=== PATIENT | female | born 1990 | race Caucasian/White ===

== ENCOUNTER 2018-12-28 17:52 | Emergency (ER) | payer SELFPAY ==
[2018-12-28 18:46] LABS: Absolute Lymphocytes (CBC) 2.2 K/uL (0.7-4.9); Basophils % 0.5 % (0-1.3); Hematocrit 41.9 % (36.0-45.0); Lymphocytes % 23.8 % (15.3-44.8); RBC Red Blood Cell Count 4.44 M/uL (3.86-4.86)
[2018-12-28 18:49] LABS: Protime INR 2.32
[2018-12-28 19:03] LABS: BUN Blood Urea Nitrogen 9 mg/dL (7-18); Bicarbonate 24 mmol/L (21-32); Glucose Level 93 mg/dL (74-106); Magnesium 2.3 mg/dL (1.8-2.4); NT PRO-BNP 171 pg/mL (<125); Potassium 3.6 mmol/L (3.5-5.1); Sodium Level 140 mmol/L (136-145); Troponin (Emerg Dept Use Only) < 0.02 ng/mL (0.0-0.045)
--- NOTE | 2018-12-28 19:43 | RAD REPORT ---
EXAM DESCRIPTION: CT - Chest For Pe Angio - 12/28/2018 7:31 pm CLINICAL HISTORY: Right-sided chest pain COMPARISON: None. TECHNIQUE: Dynamically enhanced 3 mm thick images of the chest were obtained during administration o f approximately 150mL Isovue 370 IV contrast. Coronal and oblique MIP reconstruction images were gene rated and reviewed. Exam utilizes a protocol to evaluate the pulmonary arterial tree. All CT scans are performed using dose optimization technique as appropriate and may include automated exposure control or mA/KV adjustment according to patient size. FINDINGS: No pulmonary emboli are identified. The aorta as imaged shows no acute or suspicious finding. No pericardial thickening or effusion. No infiltrate or mass in the lung parenchyma. No pleural effusion or pleural thickening. No mediastinal or hilar suspicious masses. No chest wall masses or abnormal axillary lymphadenopathy. IMPRESSION: No pulmonary emboli identified. No other significant or suspicious findings.
--- NOTE | 2018-12-28 20:25 | EDPHYS ---
Physician Documentation [facility] Name: Verenice Greene Age: 28 yrs Sex: Female : 1990 Arrival Date: 12/28/2018 Time: 17:54 Bed 20 Private MD: ED Physician Eleuterio Morales HPI: 12/29 03:12 This 28 yrs old Female presents to ER via Ambulatory with complaints of Chest kb Pain. 03:13 The patient or guardian reports chest pain that is located primarily in the anterior kb chest wall, right. The pain does not radiate. Associated signs and symptoms: Pertinent positives: cough, shortness of breath. The chest pain is described as sharp. Duration: The patient or guardian reports a single episode. Modifying factors: The symptoms are alleviated by nothing. the symptoms are aggravated by breathing. Severity of pain: At its worst the pain was moderate in the emergency department the pain is unchanged. The patient has experienced a previous episode. The patient has not recently seen a physician. Pt reports chest pain with breathing, shortness of breath and cough that started this morning. States it feels the same as when she had a PE before. 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 - Social history:: Smoking status: Patient uses tobacco products, smokes one-half pack cigarettes per day. - Ebola Screening: : No symptoms or risks identified at this time. ROS: 12/29 03:13 Constitutional: Negative for fever, chills, and weight loss, ENT: Negative for injury, kb pain, and discharge, Neck: Negative for injury, pain, and swelling, Abdomen/GI: Negative for abdominal pain, nausea, vomiting, diarrhea, and constipation, Back: Negative for injury and pain, MS/Extremity: Negative for injury and deformity, Skin: Negative for injury, rash, and discoloration, Neuro: Negative for headache, weakness, numbness, tingling, and seizure. Cardiovascular: Positive for chest pain, of the right scapular area. Respiratory: Positive for cough, shortness of breath. Exam: 03:13 Constitutional: This is a well developed, well nourished patient who is awake, alert, kb and in no acute distress. Head/Face: Normocephalic, atraumatic. ENT: Nares patent. No nasal discharge, no septal abnormalities noted. Tympanic membranes are normal and external auditory canals are clear. Oropharynx with no redness, swelling, or masses, exudates, or evidence of obstruction, uvula midline. Mucous membranes moist. Neck: Trachea midline, no thyromegaly or masses palpated, and no cervical lymphadenopathy. Supple, full range of motion without nuchal rigidity, or vertebral point tenderness. No Meningismus. Chest/axilla: Normal chest wall appearance and motion. Nontender with no deformity. No lesions are appreciated. Cardiovascular: Regular rate and rhythm with a normal S1 and S2. No gallops, murmurs, or rubs. Normal PMI, no JVD. No pulse deficits. Respiratory: Lungs have equal breath sounds bilaterally, clear to auscultation and percussion. No rales, rhonchi or wheezes noted. No increased work of breathing, no retractions or nasal flaring. Abdomen/GI: Soft, non-tender, with normal bowel sounds. No distension or tympany. No guarding or rebound. No evidence of tenderness throughout. Skin: Warm, dry with normal turgor. Normal color with no rashes, no lesions, and no evidence of cellulitis. MS/ Extremity: Pulses equal, no cyanosis. Neurovascular intact. Full, normal range of motion. Neuro: Awake and alert, GCS 15, oriented to person, place, time, and situation. Cranial nerves II-XII grossly intact. Motor strength 5/5 in all extremities. Sensory grossly intact. Cerebellar exam normal. Normal gait. Vital Signs: 12/28 18:07 BP 176 / 82; Pulse 97; Resp 20; Temp 97.8; Pulse Ox 98% on R/A; Weight 143.79 kg; hb Height 6 ft. (182.88 cm); Pain 6/10; 19:04 BP 128 / 76; Pulse 84; Resp 16; Pulse Ox 99% on R/A; em 19:15 BP 128 / 76; Pulse 86; Resp 17; Temp 98.6; Pulse Ox 100% ; Pain 9/10; rr5 20:00 BP 133 / 70; Pulse 80; Resp 17; Pulse Ox 99% on R/A; rr5 20:40 BP 136 / 84; Pulse 83; Resp 18; Pulse Ox 100% on R/A; rr5 18:07 Body Mass Index 42.99 (143.79 kg, 182.88 cm) hb MDM: 18:14 Patient medically screened. kb 20:22 Data reviewed: vital signs, nurses notes. Data interpreted: Pulse oximetry: on room air kb is 100 %. Interpretation: normal. 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 12/28 18:30 Order name: Basic Metabolic Panel; Complete Time: 19:08 kb 12/28 18:30 Order name: CBC with Diff; Complete Time: 18:57 kb 12/28 18:30 Order name: Magnesium; Complete Time: 19:08 kb 12/28 18:30 Order name: NT PRO-BNP; Complete Time: 19:08 kb 12/28 18:30 Order name: PT-INR; Complete Time: 19:08 kb 02 18:30 Order name: Troponin (emerg Dept Use Only); Complete Time: 19:08 kb 12/28 18:30 Order name: EKG; Complete Time: 18:31 kb 12/28 18:30 Order name: Cardiac monitoring; Complete Time: 18:52 kb 12/28 18:30 Order name: EKG - Nurse/Tech; Complete Time: 18:52 kb 12/28 18:30 Order name: IV Saline Lock; Complete Time: 18:52 kb 12/28 18:30 Order name: Labs collected and sent; Complete Time: 18:52 kb 12/28 18:30 Order name: O2 Per Protocol; Complete Time: 18:52 kb 12/28 18:30 Order name: O2 Sat Monitoring; Complete Time: 18:52 kb 12/28 18:31 Order name: CT Chest For PE Angio; Complete Time: 19:45 kb Administered Medications: No medications were administered Disposition: 12/28/18 20:24 Discharged to Home. Impression: Chest pain on breathing, Cough. - Condition is Stable. - Discharge Instructions: Nonspecific Chest Pain, [id number], Cough, Adult, [id number]. - Medication Reconciliation Form, Thank You Letter, Antibiotic Education, Prescription Opioid Use form. - Follow up: Emergency Department; When: As needed; Reason: Worsening of condition. Follow up: Private Physician; When: 2 - 3 days; Reason: Recheck today's complaints, Continuance of care, Re-evaluation by your physician. Addendum: 12/31/2018 09:07 Co-signature as Attending Physician, Eleuterio Morales MD I agree with the assessment and k dr plan of care. Signatures: Dispatcher [employer] EDMS Emily Donald, STENCIL TYPIST-C STENCIL TYPIST-Ckb Eleuterio Morales MD MD [facility] Ya Diaz RN RN Christiano Tam RN RN rr5 Corrections: (The following items were deleted from the chart) 12/28 20:43 20:24 12/28/2018 20:24 Discharged to Home. Impression: Chest pain on breathing; Cough. rr5 Condition is Stable. Forms are Medication Reconciliation Form, Thank You Letter, Antibiotic Education, Prescription Opioid Use. Follow up: Emergency Department; When: As needed; Reason: Worsening of condition. Follow up: Private Physician; When: 2 - 3 days; Reason: Recheck today's complaints, Continuance of care, Re-evaluation by your physician. kb
--- NOTE | 2018-12-28 20:25 | ER ---
Nurse's Notes [facility] Name: Verenice Greene Age: 28 yrs Sex: Female : 1990 Arrival Date: 12/28/2018 Time: 17:54 Bed 20 Private MD: Diagnosis: Chest pain on breathing;Cough Presentation: 12/28 18:07 Presenting complaint: Right sided chest pain, right upper back pain, pain with cough, hb and blood tinged sputum since this morning. Hx of DVT, PE, had IVC filter removed 2 weeks ago. Transition of care: patient was not received from another setting of care. Onset of symptoms was December 28, 2018. Risk Assessment: Do you want to hurt yourself or someone else? Patient reports no desire to harm self or others. Initial Sepsis Screen: Does the patient meet any 2 criteria? No. Patient's initial sepsis screen is negative. Does the patient have a suspected source of infection? No. Patient's initial sepsis screen is negative. Care prior to arrival: None. 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 - Social history:: Smoking status: Patient uses tobacco products, smokes one-half pack cigarettes per day. - Ebola Screening: : No symptoms or risks identified at this time. Screenin:35 Abuse screen: Denies threats or abuse. Nutritional screening: No deficits noted. em Tuberculosis screening: No symptoms or risk factors identified. Fall Risk None identified. Assessment: 18:35 General: Appears in no apparent distress. comfortable, Behavior is calm, cooperative, em Denies fever. Pain: Complains of pain in right scapular area Pain does not radiate. Pain currently is 6 out of 10 on a pain scale. Quality of pain is described as sharp, shooting, stabbing, Pain began 1 day ago. Is intermittent. Neuro: Level of Consciousness is awake, alert, obeys commands, Oriented to person, place, time, situation. Cardiovascular: Reports chest pain, shortness of breath, Denies lightheadedness, nausea, Capillary refill < 3 seconds Patient's skin is warm and dry. Rhythm is sinus rhythm. Respiratory: Airway is patent Respiratory effort is even, unlabored, Respiratory pattern is regular, symmetrical. GI: Patient currently denies nausea, vomiting. Derm: Skin is intact, is healthy with good turgor, Skin is pink, warm \T\ dry. Musculoskeletal: Capillary refill < 3 seconds, Range of motion: intact in all extremities. 18:35 Reassessment: I agree with assessment completed by Mika Pak LVN . aa5 19:15 General: Appears in no apparent distress. comfortable, Behavior is calm, cooperative, rr5 appropriate for age, Denies fever. Pain: Complains of pain in right scapular area Pain radiates to chest Pain currently is 9 out of 10 on a pain scale. Quality of pain is described as stabbing, Pain began gradually, Is intermittent. Neuro: Level of Consciousness is awake, alert, obeys commands, Oriented to person, place, time, situation, Appropriate for age. Cardiovascular: Reports chest pain, shortness of breath, Capillary refill < 3 seconds Patient's skin is warm and dry. Respiratory: Reports cough that is with blood Airway is patent Respiratory effort is even, unlabored, Respiratory pattern is. GI: No signs and/or symptoms were reported involving the gastrointestinal system. : No signs and/or symptoms were reported regarding the genitourinary system. EENT: No signs and/or symptoms were reported regarding the EENT system. Derm: Skin is intact, is healthy with good turgor, Skin is pink, warm \T\ dry. Musculoskeletal: Circulation, motion, and sensation intact. Capillary refill < 3 seconds. 20:10 Reassessment: Patient appears in no apparent distress at this time. Patient and/or rr5 family updated on plan of care and expected duration. Pain level reassessed. Patient is alert, oriented x 3, equal unlabored respirations, skin warm/dry/pink. awaiting for result. 20:40 Reassessment: Patient appears in no apparent distress at this time. Patient is alert, rr5 oriented x 3, equal unlabored respirations, skin warm/dry/pink. discharge instruction given and explained, demonstrate understanding. Vital Signs: 18:07 BP 176 / 82; Pulse 97; Resp 20; Temp 97.8; Pulse Ox 98% on R/A; Weight 143.79 kg; hb Height 6 ft. (182.88 cm); Pain 6/10; 19:04 BP 128 / 76; Pulse 84; Resp 16; Pulse Ox 99% on R/A; em 19:15 BP 128 / 76; Pulse 86; Resp 17; Temp 98.6; Pulse Ox 100% ; Pain 9/10; rr5 20:00 BP 133 / 70; Pulse 80; Resp 17; Pulse Ox 99% on R/A; rr5 20:40 BP 136 / 84; Pulse 83; Resp 18; Pulse Ox 100% on R/A; rr5 18:07 Body Mass Index 42.99 (143.79 kg, 182.88 cm) hb ED Course: 17:54 Patient arrived in ED. as 18:07 Arm band placed on. hb 18:08 Triage completed. hb 18:14 [facility]C [facility] kb 18:14 Eleuterio Morales MD is Attending Physician. kb 18:35 Radiology exam delayed due to lab results not completed at this time. (BUN/Creatinine) nj test not completed at this time. IV insertion attempt and/or patient not having appropriate IV at this time. 18:35 Patient has correct armband on for positive identification. Bed in low position. Call em light in reach. dyeing machine tender on. Pulse ox on. NIBP on. 18:35 Patient maintains SpO2 saturation greater than 95% on room air. em 18:40 Inserted saline lock: 22 gauge in right antecubital area, using aseptic technique. em Blood collected. 18:51 Mika Pak LVN is Primary Nurse. em 18:55 Radiology exam delayed due to lab results not completed at this time. (BUN/Creatinine). vm2 19:32 CT Chest For PE Angio In Process Unspecified. EDMS 20:42 No provider procedures requiring assistance completed. IV discontinued, intact, rr5 bleeding controlled, No redness/swelling at site. Pressure dressing applied. Administered Medications: No medications were administered Outcome: 20:24 Discharge ordered by . kb 20:42 Discharged to home ambulatory. rr5 20:42 Condition: stable 20:42 Discharge instructions given to patient, Instructed on discharge instructions, follow up and referral plans. Demonstrated understanding of instructions, follow-up care. 20:43 Patient left the ED. rr5 Signatures: Dispatcher [employer] Emily Wooten, COMPRESSOR MECHANIC-Raquel COMPRESSOR MECHANIC-Mika Franco, CLINICAL DATA COORDINATOR CLINICAL DATA COORDINATOR Gianna Kumar Audri, RN RN aa5 Ya Diaz RN RN Dewey Perdue [facility] Christiano Tam RN RN rr5 Corrections: (The following items were deleted from the chart) 19:21 18:35 Pain: Complains of pain in right scapular area Pain does not radiate. Pain aa5 currently is 6 out of 10 on a pain scale. Pain began 1 day ago. em
--- NOTE | 2018-12-29 06:47 | EKG ---
Test Date: 2018-12-28 Test Time: 18:21:59 Hadoop Infrastructure Architect: AZUCENA MEASUREMENT RESULTS: Intervals: Rate: 88 NM: 156 QRSD: 80 QT: 370 QTc: 447 [place]: P: 16 NM: 156 QRS: 32 T: 29 INTERPRETIVE STATEMENTS: Normal sinus rhythm Normal ECG No previous ECG available for comparison Electronically Signed On 12-29-18 06:46:04 CDT by Joao Mccullough
== END 2018-12-28 20:43 | disposition home or self-care (01) ==
LOC: ER 17:52
DX: R07.1 Chest pain on breathing (principal); R05 Cough; Z79.01 Long term (current) use of anticoagulants; F17.210 Nicotine dependence, cigarettes, uncomplicated
CPT/HCPCS: 36415; 71275; 80048; 83735; 83880; 84484; 85025; 85610; 93005; 99285; Q9967